=== PATIENT | male | born 1955 | race Caucasian/White ===

== ENCOUNTER → 2017-08-30 | Outpatient (CLI) | payer SELFPAY ==
--- NOTE | 2017-08-30 10:37 | CT ---
CT OF ABDOMEN AND THE PELVIS WITH INTRAVENOUS CONTRAST CLINICAL HISTORY: MALIGNANT NEOPLASM OF PROSTATE COMPARISON: None TECHNIQUE: Routine CT protocol following intravenous administration of 100 mL Visipaque contrast. Oral contrast was not administered. Injury formations performed in coronal and sagittal planes. Imaging was performed utilizing automated exposure control for dose reduction. FINDINGS: LUNG BASES: Limited visualization demonstrate no concerning finding in dependent portions of both lung bases. Incidental note of a benign lipoma within the inferior right pectoralis muscle overlying the lower right chest wall. ABDOMEN: Small and large bowel loops are normal in caliber without obstruction or obvious inflammation. Appendix is normal in appearance. No pneumatosis or intraperitoneal free air is identified. No abscess adjoining visualized bowel loops. Extensive fatty infiltration throughout liver without focal mass nor abnormal biliary distention. At least two areas of ill-defined and heterogeneously increased attenuation in subcapsular region of the right hepatic lobe could represent NADIRA (transient hepatic attenuation difference), a variant of normal appearance. Spleen, pancreas, and adrenal glands are unremarkable in appearance. Gallbladder is unremarkable in appearance.No obstructive uropathy nor calcific nephrolithiasis in either kidney. Abdominal aorta, its major mesenteric branches and iliac arteries are patent without aneurysmal dilatation or flow limiting stenosis nor dissection. No concerning mesenteric or retroperitoneal lymphadenopathy. Lumbar spine demonstrate unremarkable alignment without focal lytic nor sclerotic lesion. Multilevel degenerative changes throughout the lumbar spine.. PELVIS: Bladder is mildly distended. No concerning lymphadenopathy nor bony injury in the pelvis. No bony lytic nor sclerotic lesion identified. IMPRESSION: 1. No bowel obstruction nor perforation nor joining abscess. Normal appendix. 2. No concerning intraperitoneal finding. 3. Likely benign appearing attenuation difference (NADIRA) in subcapsular region of right hepatic lobe. 4. No concerning bony lesion in abdomen or pelvis. Electronically signed by: Sam Rogel MD 08/30/2017 10:36 AM FORDER OPERATOR
== END ==
LOC: CT 07:28
PROVIDERS: ATTEND Family Medicine
DX: C61 Malignant neoplasm of prostate (principal)

== ENCOUNTER → 2017-09-02 | Outpatient (CLI) | payer SELFPAY ==
--- NOTE | 2017-09-06 08:50 | NM ---
EXAM DESCRIPTION: Bone Scan, Whole Body CLINICAL HISTORY: MALIGNANT NEOPLASM OF PROSTATE COMPARISON: CT abdomen and pelvis August 30, 2017 TECHNIQUE: Following intravenous administration of 30.8 mCi technetium 99m MDP, whole body scintigraphic imaging was obtained in the anterior and posterior projections. Additional spot scintigraphic imaging was also obtained over the abdomen. FINDINGS: Skull: Unremarkable. Spine: Mild degenerative uptake seen in the left lower cervical spine. There is increased radiotracer uptake in the L2-L4 vertebral bodies which correlates with opposing endplate degenerative sclerotic changes on the comparison CT of the abdomen and pelvis of August 30, 2017. Thorax: Increased uptake demonstrated at the costovertebral junction of right ninth rib/T9. The ribs otherwise demonstrates homogeneous physiologic uptake. Abdomen/pelvis: Urinary activity demonstrated within the bilateral kidneys and urinary bladder. Mild increased radiotracer activity noted within the collecting system of the left kidney. Contaminated urinary activity demonstrated in the region of the genitalia anteriorly. Extremities: Degenerative uptake in the bilateral shoulders, knees, and ankle joints. Soft tissues: Contaminated urinary activity demonstrated in the region of the genitalia anteriorly. Mild increased radiotracer activity projects over the anterior abdomen just right of midline at the level of the iliac crest have no CT correlate and is not well demonstrated on the posterior view. This may represent urinary contamination. IMPRESSION: 1. Increased radiotracer uptake in the L2-L4 vertebral bodies which correlates with opposing endplate sclerotic degenerative changes on the comparison CT of the abdomen and pelvis of August 30, 2017. Underlying osseous malignant involvement cannot be entirely excluded. However, bone scan and CT abdomen pelvis imaging correlation favors degenerative changes. 2. Degenerative changes of the lower left cervical spine as well as the costovertebral junction at T9/right ninth rib. 3. Degenerative changes of the bilateral shoulders, knees, and ankle joints. 4. Contaminated urinary activity in the region of the genitalia anteriorly. Mild increased radiotracer activity projects over the anterior abdomen just right of midline at the level of the iliac crest. There is no CT correlate, and is not well demonstrated on the posterior scintigraphic view. This most likely represents urinary contamination. Electronically signed by: Nick Naylor MD 09/06/2017 8:49 AM CDT
== END ==
LOC: NM 08:34
PROVIDERS: ATTEND Urology
DX: C61 Malignant neoplasm of prostate (principal)

== ENCOUNTER 2019-03-26 20:34 | Emergency (ER) | payer BC, OTHER ==
[2019-03-26] MEDS ORDERED: SODIUM CHLORIDE 0.9% 1000ML 1,000 ML IVS PRN (20:48)
[2019-03-26] MEDS ORDERED: SODIUM CHLORIDE 0.9% (FLUSH) 10 ML SYG IV PRN (20:48)
[2019-03-26] MEDS ORDERED: MORPHINE SULFATE INJ 10 MG/ML VIAL IV ONE ×2 (20:58→22:55)
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
[2019-03-26] MEDS ORDERED: NEOMYCIN-BACITRACIN-POLYMYXIN 0.9 GM UD TOP ONE ×2 (23:09→23:11)
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
[2019-03-26] MEDS ORDERED: levoFLOXacin 500MG IV 500 MG in PREMIX BAG 1 BAG IVPB ONE (23:31)
[2019-03-26] MEDS ORDERED: CLINDAMYCIN IV 600MG 600 MG in PREMIX BAG 1 BAG IVPB ONE (23:32)
[2019-03-26] MEDS ORDERED: levoFLOXacin 500MG IV 100 ML IVPB ONE (23:42)
[2019-03-26] MEDS ORDERED: CLINDAMYCIN IV 600MG 50 ML IVPB ONE (23:42)
[2019-03-27] VITALS: TEMP 99.1
[2019-03-27] MEDS ORDERED: NEOMYCIN-BACITRACIN-POLYMYXIN 0.9 GM UD TOP ONE (00:03)
[2019-03-27] MEDS ORDERED: MORPHINE SULFATE INJ 10 MG/ML VIAL IV ONE (00:36)
[2019-03-27 00:38] VITALS: BP 145/69
[2019-03-27 00:43] VITALS: O2SAT 98
== END 2019-03-27 01:00 | disposition short-term general hospital (02) ==
LOC: ER 20:34
DX: S62.666B Nondisplaced fracture of distal phalanx of right little finger, initial encounter for open fracture (principal); S62.616B Displaced fracture of proximal phalanx of right little finger, initial encounter for open fracture; S52.501A Unspecified fracture of the lower end of right radius, initial encounter for closed fracture; S52.614A Nondisplaced fracture of right ulna styloid process, initial encounter for closed fracture; S22.42XA Multiple fractures of ribs, left side, initial encounter for closed fracture; R00.0 Tachycardia, unspecified; V23.4XXA Motorcycle driver injured in collision with car, pick-up truck or van in traffic accident, initial encounter; Y92.410 Unspecified street and highway as the place of occurrence of the external cause; Z85.46 Personal history of malignant neoplasm of prostate; Z88.0 Allergy status to penicillin
CPT/HCPCS: 70450; 71260; 72125; 73090; 73110; 73130; 74177; 80053; 80320; 81001; 82150; 82550; 82553; 84484; 85025; 87040; 93005; 94760; J1956; J2270; J3490; J7030

== ENCOUNTER 2019-11-24 | Emergency (ER) | payer SELFPAY ==
--- NOTE | 2019-11-24 13:28 | ED.PDOC ---
History of Present Illness - General Chief Complaint: Skin/Abrasion/Tear Stated Complaint: Rash Time Seen by Provider: 11/24/19 13:27 Source: patient Exam Limitations: no limitations - History of Present Illness Initial Comments: This is a 64-year-old male with history of prostate cancer, diabetes, presenting to the emergency department with pruritic rash this been present for greater than 1 week. He saw his primary care doctor earlier this week and was prescribed permethrin cream which he states he has been using twice daily to the affected areas of rash only. He denies any spread of the rash, but states it is not improved since he is been treating the rash with permethrin cream. He denies any poison edi contact. He denies any oral symptoms. No new medications, soaps, creams, detergents. No history of asthma or eczema. Allergies/Adverse Reactions: Allergies Penicillins Allergy (Verified 11/24/19 13:39) Home Medications: Ambulatory Orders RX: Permethrin [Elimite] 1 applic TOP ONCE #50 gm 11/24/19 Triamcinolone 0.5% Cream [Kenalog 0.5% Cream] 1 applic TOP Q12H PRN #30 gm 11/24/19 Review of Systems - Review of Systems Constitutional: Denies: chills, fever EENTM: Denies: ear pain, nose pain, nose congestion, throat pain, throat swelling, mouth pain, mouth swelling Respiratory: Denies: orthopnea, short of breath, wheezing Cardiology: Denies: chest pain, edema, syncope Gastrointestinal/Abdominal: Denies: diarrhea, nausea, vomiting Genitourinary: Denies: dysuria, frequency, hematuria, pain Musculoskeletal: Denies: joint pain, joint swelling, muscle stiffness, neck pain Skin: States: rash. Denies: change in color Endocrine: States: no symptoms reported Hematologic/Lymphatic: States: no symptoms reported Past Medical History (General) - Patient Medical History Hx Seizures: No Hx Stroke: No Hx Dementia: No Hx Asthma: No Hx of COPD: No Hx Cardiac Disorders: No Hx Congestive Heart Failure: No Hx Pacemaker: No Hx Hypertension: No Hx Thyroid Disease: No Hx Diabetes: No Hx Gastroesophageal Reflux: No Hx Renal Disease: No Hx Cancer: Yes - prostate Hx of HIV: No Hx MRSA: No - Vaccination History Hx Tetanus, Diphtheria Vaccination: Yes Family Medical History - Family History Mother Family History: Unknown Physical Exam - Physical Exam General Appearance: Alert, Comfortable, Obese Eyes, Ears, Nose, Throat Exam: PERRL/EOMI, normal ENT inspection, TMs normal, pharynx normal Neck: non-tender, full range of motion Cardiovascular/Chest: normal peripheral pulses, regular rate, rhythm, no edema, no gallop, no JVD Respiratory: lungs clear, normal breath sounds, no respiratory distress Gastrointestinal/Abdominal: normal bowel sounds, non tender, soft Back Exam: normal inspection, no CVA tenderness Extremity: non-tender, no pedal edema Neurologic: no motor/sensory deficits, alert, normal mood/affect, oriented x 3 Skin Exam: other - He has widespread areas of raised, erythematous, excoriated lesions to the bilateral antecubital fossae, bilateral distal lower legs, ab dominal wall. I do not appreciate any clear burrows. There is no urticaria. Skin Problem Location: generalized Skin Character: rash Progress - Progress Progress: 11/24/19 15:55 Late entry. Patient presented with rash to bilateral AC fossa, legs, chest and abdominal wall. Possible scabies, although contact dermatitis, particularly poison edi/oak could have similar appearance. He appears to be using the permethrin cream inappropriately, only using it to the rash affected areas. I explained that the permethrin needs to be used to cover entire body from the ears down and needs to stay on overnight. We will also topical steroid, patient is a diabetic, so will defer oral steroids. Recommended follow-up with PCP in 3 to 5 days for recheck. Strict warnings given to return the emergency room for shortness of breath, worsening rash, swelling in mouth/tongue/throat, vomit ing/diarrhea, or any other concerns. Paul Thayer DO [id number] Departure - Departure Clinical Impression: Scabies Disposition: Discharge to Home or Self Care Condition: Good Departure Forms: ED Discharge - Pt. Copy, Patient Portal Self Enrollment Instructions: DI for Abrasion Referrals: Claudio Vega MD [Primary Care Provider] - 1-2 Weeks Prescriptions: RX: Permethrin [Elimite] 1 applic TOP ONCE #50 gm Triamcinolone 0.5% Cream [Kenalog 0.5% Cream] 1 applic TOP Q12H PRN #30 gm PRN Reason: Redness/Allergies Home Medications: Ambulatory Orders RX: Permethrin [Elimite] 1 applic TOP ONCE #50 gm 11/24/19 Triamcinolone 0.5% Cream [Kenalog 0.5% Cream] 1 applic TOP Q12H PRN #30 gm 11/24/19
== END 2019-11-24 14:00 | disposition home or self-care (01) ==